=== PATIENT | male | born 1990 | race Asian ===

== ENCOUNTER 2017-04-17 14:24 | Emergency (ER) | payer OTHER ==
[~2017-04-17] VITALS: Ht 170.2 cm; Wt 96.3 kg
[2017-04-17 14:30] VITALS: TEMP 36.5; Ht 170.2 cm; Wt 96.3 kg
[2017-04-17] MEDS ORDERED: SODIUM CHLORIDE 0.9% 1000ML 1,000 ML IV STA (14:52)
[2017-04-17] MEDS ORDERED: ONDANSETRON INJ 2 MG/ML 2 ML VIAL IV STA (14:52)
[2017-04-17] MEDS ORDERED: MoRPHine SULFATE 4 MG/ML 1 ML CARP\\VIAL IV STA (14:52)
[2017-04-17] MEDS ORDERED: PRT/20 PO (14:59)
[2017-04-17] MEDS ORDERED: OPTIRAY 320 IV PRN (15:00)
[2017-04-17 15:35] LABS: HEMATOCRIT 49.9 % (42-52); MEAN CELL VOLUME 82.6 fL (80-100); MEAN CORPUSCULAR HEMOGLOBIN 27.2 pg (25-34); MEAN CORPUSCULAR HGB CONC 32.9 g/dl (32-36); MEAN PLATELET VOLUME 12.1 fL (7.4-10.4); PLATELET COUNT 259 K/uL (130-400); RED BLOOD COUNT 6.04 M/uL (4.7-6.1); WHITE BLOOD COUNT 15.23 K/uL (4.8-10.8)
[2017-04-17 15:53] LABS: ALT/SGPT 45 U/L (12-78); AST/SGOT 16 U/L (15-37); BLOOD UREA NITROGEN 16 mg/dl (7-18); BUN/CREATININE RATIO 10.5 (10-20); CALCIUM 9.2 mg/dl (8.5-10.1); CARBON DIOXIDE 27 mmol/L (21-32); CHLORIDE 107 mmol/L (98-107); GLUCOSE 110 mg/dl (70-99); SODIUM 141 mmol/L (136-145)
[2017-04-17 15:55] LABS: ALKALINE PHOSPHATASE 106 U/L (45-117)
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
[2017-04-17 17:30] LABS: BASO % 0.2 %; BASO ABS # 0.03 K/uL (0-0.2); COMPLETE YES; EOS % 0.6 %; IG% 0.5 %; LYMPH ABS # 2.44 K/uL (1.2-3.4); MONO % 5.6 %; NEUT % 77.1 %
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
[2017-04-17 17:51] LABS: URINE APPEARANCE CLEAR (CLEAR); URINE BILIRUBIN NEG (NEG); URINE COLOR YELLOW; URINE NITRITE NEG (NEG); URINE SPECIFIC GRAVITY 1.043 (1.000-1.030); UROBILINOGEN NEG (NEG); ZZUR CULT IF INDIC CLEAN CATCH NO
[2017-04-17 17:52] LABS: MANUAL MICROSCOPIC REQUIRED? NO; REVIEW REQ? NO
[2017-04-17 18:25] VITALS: BP 109/75; PULSE 93; O2SAT 98
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
== END 2017-04-17 18:25 | disposition home or self-care (01) ==
LOC: C.EDB 14:24 → EDBD 14:24 → C.EDB 18:25
DX: S83.92XA Sprain of unspecified site of left knee, initial encounter (principal); T14.8 Other injury of unspecified body region; V49.40XA Driver injured in collision with unspecified motor vehicles in traffic accident, initial encounter; I10 Essential (primary) hypertension

== ENCOUNTER 2018-03-10 00:11 | Emergency (ER) | payer OTHER ==
[~2018-03-10] VITALS: Ht 167.6 cm; Wt 101.6 kg
[~2018-03-10 00:11] MED LIST: PRT/20 PO
[2018-03-10 00:16] VITALS: TEMP 36.6; Ht 167.6 cm; Wt 101.6 kg
[2018-03-10] MEDS ORDERED: ONDANSETRON INJ 2 MG/ML 2 ML VIAL IV STA (00:40)
[2018-03-10] MEDS ORDERED: KETOROLAC TROMETHAMINE 30 MG/ML VIAL IV STA (00:40)
--- NOTE | 2018-03-10 00:46 | EMERGENCY ROOM VISIT NOTE ---
History Report prepared by Vonda: Ashley Delgado Under the Supervision of: Dr. Shalini Alba D.O. First contact with patient: 00:25 Chief Complaint: HEADACHE Stated Complaint: HEADACHE,VOMITING History of Present Illness The patient is a 27 year old male who presents to the Emergency Room with complaints of a persistent headache that started 7 hours ago. The patient rates his pain an 8/10 in severity. The patient states he has never had a headache like this before. He denies a history of migraines. The patient notes he vomited 3 hours ago and again right before he came to the ED. He reports he is unable to sleep because the pain is so bad. He notes he has no prior health issues. The patient denies any recent injury to his head. He states he took Ibuprofen at home but it did not help the pain. He reports he recently got over a viral illness. The patient denies any fever, chills, abdominal pain, and leg cramping or swelling. He notes he ate lunch today but nothing else. He states he has been drinking normally. 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 He notes his dad has a history of high blood pressure. Source of History: patient Onset: 7 hours ago Position: head Symptom Intensity: 8/10 Timing: other (persistent) Associated Symptoms: + vomiting, No fevers, No chills, No abdominal pain Note: Denies leg cramping or swelling. Review of Systems See HPI for pertinent positives & negatives. A total of 10 systems reviewed and were otherwise negative. Past Medical & Surgical Medical Problems: (1) No significant medical problems Surgical Problems: (1) History of wisdom tooth extraction Family History Hypertension Social History Smoking Status: Never Smoker Alcohol Use: occasionally Marital Status: single Housing Status: lives with roommate Occupation Status: employed Current/Historical Medications Scheduled Fluticasone Propionate (Nasal) (Flonase Allergy Relief), 2 SPRAYS ALFRED DAILY Scheduled PRN Pantoprazole (Protonix), 1 TAB PO DAILY PRN for REFLUX Allergies Coded Allergies: No Known Allergies (Unverified , 03/10/18) Physical Exam Vital Signs Date Time Temp Pulse Resp B/P (MAP) Pulse Ox O2 Delivery O2 Flow Rate FiO2 03/10/18 02:00 86 18 133/86 96 03/10/18 01:57 86 18 133/86 96 Room Air 03/10/18 01:02 80 18 133/102 96 Room Air 03/10/18 00:16 36.6 90 18 149/105 96 Room Air Physical Exam HEENT: Head - normocephalic and atraumatic. Pupils are equal, round, and reactive to light. Extraocular eye muscles are intact and sclera are anicteric. Nose - moist nasal mucosa without discharge. Mouth - moist buccal mucosa. Oropharynx is nonerythematous and there is no tonsillar exudate or edema noted. Neck: Supple; no JVD, nuchal rigidity, cervical lymphadenopathy. Heart: Regular rate and rhythm. There is a normal S1 and S2 with no murmurs, clicks, or gallops appreciated. Lungs: Clear to auscultation bilaterally with no wheezes, rales, or rhonchi. Abdomen: Soft, completely nontender, nondistended, with good bowel sounds. There are no palpable pulsatile masses or hepatosplenomegaly. There is no guarding, rigidity, or rebound noted. Extremities: No evidence of cyanosis, clubbing, or edema. There are easily palpable peripheral pulses. Neuro:The patient is awake and alert, oriented to day, time, and place. Muscle strength is 5/5 in all 4 extremities. The patient has equal cattle feeder strength and equal pedal push and pull. There are no cerebellar signs. Medical Decision & Procedures ER Provider Diagnostic Interpretation: Radiology results as stated below per my review and the radiologist's interpretation: CT HEAD: No intracranial hemorrhage, mass, or shift in midline structure. Paranasal sinuses and mastoid air cells are clear. Calvarium is intact. Laboratory Results 03/10/18 00:49 Red Blood Count 5.90, Mean Corpuscular Volume 81.2, Mean Corpuscular Hemoglobin 29.0, Mean Corpuscular Hemoglobin Concent 35.7, Mean Platelet Volume 12.0, Neutrophils (%) (Auto) 75.1, Lymphocytes (%) (Auto) 18.3, Monocytes (%) (Auto) 4.6, Eosinophils (%) (Auto) 0.7, Basophils (%) (Auto) 0.3, Neutrophils # (Auto) 10.12, Lymphocytes # (Auto) 2.47, Monocytes # (Auto) 0.62, Eosinophils # (Auto) 0.09, Basophils # (Auto) 0.04 4/18/18 00:49 Test 03/10/18 00:49 White Blood Count 13.47 K/uL (4.8-10.8) Red Blood Count 5.90 M/uL (4.7-6.1) Hemoglobin 17.1 g/dL (14.0-18.0) Hematocrit 47.9 % (42-52) Mean Corpuscular Volume 81.2 fL (80-100) Mean Corpuscular Hemoglobin 29.0 pg (25-34) Mean Corpuscular Hemoglobin Concent 35.7 g/dl (32-36) Platelet Count 250 K/uL (130-400) Mean Platelet Volume 12.0 fL (7.4-10.4) Neutrophils (%) (Auto) 75.1 % Lymphocytes (%) (Auto) 18.3 % Monocytes (%) (Auto) 4.6 % Eosinophils (%) (Auto) 0.7 % Basophils (%) (Auto) 0.3 % Neutrophils # (Auto) 10.12 K/uL (1.4-6.5) Lymphocytes # (Auto) 2.47 K/uL (1.2-3.4) Monocytes # (Auto) 0.62 K/uL (0.11-0.59) Eosinophils # (Auto) 0.09 K/uL (0-0.5) Basophils # (Auto) 0.04 K/uL (0-0.2) RDW Standard Deviation 41.4 fL (36.4-46.3) RDW Coefficient of Variation 14.0 % (11.5-14.5) Immature Granulocyte % (Auto) 1.0 % Immature Granulocyte # (Auto) 0.13 K/uL (0.00-0.02) Anion Gap 6.0 mmol/L (3-11) Est Creatinine Clear Calc Drug Dose 113.6 ml/min Estimated GFR () 107.2 Estimated GFR (Non- 92.5 BUN/Creatinine Ratio 15.1 (10-20) Calcium Level 9.2 mg/dl (8.5-10.1) Total Bilirubin 0.7 mg/dl (0.2-1) Aspartate Amino Transf (AST/SGOT) 17 U/L (15-37) Alanine Aminotransferase (ALT/SGPT) 62 U/L (12-78) Alkaline Phosphatase 83 U/L (45-117) Total Protein 8.0 gm/dl (6.4-8.2) Albumin 4.0 gm/dl (3.4-5.0) Globulin 4.0 gm/dl (2.5-4.0) Albumin/Globulin Ratio 1.0 (0.9-2) Laboratory results per my review. Medications Administered Medications (Trade) Dose Ordered Sig/Tammie Route Start Time Stop Time Status Last Admin Dose Admin Ketorolac Tromethamine (Toradol Inj) 30 mg NOW STAT IV 03/10/18 00:40 03/10/18 00:43 DC 03/10/18 00:51 30 MG Ondansetron HCl (Zofran Inj) 4 mg NOW STAT IV 03/10/18 00:40 03/10/18 00:43 DC 03/10/18 00:50 4 MG Procedure 0040: Zofran Inj 4 mg IV, Toradol Inj 30 mg IV. ED Course 0025: The patient was evaluated in room B3B. A complete history and physical examination were performed. Nursing notes and previous electronic medical records were reviewed. IV lock was established and labs were drawn as above. 0040: Zofran Inj 4 mg IV, Toradol Inj 30 mg IV. The patient went for CT scan of the brain as described above. 0115: I rechecked the patient and he is feeling better. He states his headache is down to a 2/10. 0135: I rechecked the patient and he states the pain is gone. He rates his pain a 0/10. I recycled his blood pressure and it is now down to 131/86. It was high when he got to the ED but it returned to normal. The patient is ready for discharge. Medical Decision The patient is a 27 year old male who presents to the ED with headaches. Differential diagnosis includes migraine, intracranial hemorrhage, hypertensive crisis, meningitis, tension headache. The lab results show: WBC 13.4 Stable H & H Normal renal function Glucose 126 Normal LFT's This is a 27-year-old male patient presents to the emergency department with a severe headache. The patient was hypertensive upon arrival here in the emergency department. CT scan of the brain was unremarkable. The patient's blood pressure came down on its own. At the time of discharge, the patient was symptom-free. I have asked the patient to rest and take a well-balanced diet over the next couple of days. I have asked him to follow-up with his PCP by the end of the week if the headache persists. If symptoms worsen or the patient develops a fever or neck stiffness, he should return to the emergency department immediately. Medication Reconcilliation Current Medication List: was personally reviewed by me Blood Pressure Screening Patient's blood pressure: Normal blood pressure Impression Primary Impression: Headache Scribe Attestation The scribe's documentation has been prepared under my direction and personally reviewed by me in its entirety. I confirm that the note above accurately reflects all work, treatment, procedures, and medical decision making performed by me. Departure Information Dispostion Home / Self-Care Referrals Darrick Holloway III, M.D. (PCP) Patient Instructions My [facility] Additional Instructions Rest. Take plenty of clear liquids and a well-balanced diet. Return to the ER for worsening headache, fever, vomiting Follow up with PCP for a fasting blood sugar and a recheck of your BP Problem Qualifiers Primary Impression: Headache Headache type: unspecified Headache chronicity pattern: acute headache Intractability: not intractable Qualified Codes: R51 - Headache
[2018-03-10 01:07] LABS: BASO % 0.3 %; BASO ABS # 0.04 K/uL (0-0.2); EOS % 0.7 %; EOS ABS # 0.09 K/uL (0-0.5); HEMATOCRIT 47.9 % (42-52); HEMOGLOBIN 17.1 g/dL (14.0-18.0); IG# 0.13 K/uL (0.00-0.02); LYMPH % 18.3 %; LYMPH ABS # 2.47 K/uL (1.2-3.4); MEAN CELL VOLUME 81.2 fL (80-100); MEAN CORPUSCULAR HGB CONC 35.7 g/dl (32-36); MONO % 4.6 %; MONO ABS # 0.62 K/uL (0.11-0.59); NEUT % 75.1 %; NEUT ABS # 10.12 K/uL (1.4-6.5); PLATELET COUNT 250 K/uL (130-400); RED CELL DISTRIBUTION WIDTH SD 41.4 fL (36.4-46.3); WHITE BLOOD COUNT 13.47 K/uL (4.8-10.8)
[2018-03-10 01:26] LABS: CALCIUM 9.2 mg/dl (8.5-10.1); CREATININE 1.09 mg/dl (0.60-1.40)
[2018-03-10] MEDS ORDERED: FLUT0.15 NAE (01:42)
[2018-03-10 02:00] VITALS: BP 133/86; PULSE 86; O2SAT 96
--- NOTE | 2018-03-10 06:52 | DIAGNOSTIC IMAGING REPORT ---
HEAD WITHOUT CONTRAST (CT) CT DOSE: 638.56 mGycm HISTORY: Pain. Nausea. severe head pain TECHNIQUE: Multiaxial CT images of the head were performed without the use of intravenous contrast. A dose lowering technique was utilized adhering to the principles of ALARA. Comparison: None. Findings: The paranasal sinuses and mastoid air cells are clear. The calvarium and skull base are intact. The ventricles and sulci are within normal limits. There is no mass, hematoma, midline shift, or acute infarct. Impression: No acute intracranial abnormality. The above report was generated using voice recognition software. It may contain grammatical, syntax or spelling errors. Electronically signed by: Edmundo Torres M.D. 03/10/2018 6:51 AM Dictated Date/Time: 03/10/2018 6:50 AM
== END 2018-03-10 02:00 | disposition home or self-care (01) ==
LOC: C.EDB 00:12
DX: R51 Headache (principal)